=== PATIENT | male | born 1990 | race Caucasian/White ===

== ENCOUNTER 2017-03-16 12:08 | Emergency (ER) | payer SELFPAY ==
[~2017-03-16] VITALS: Ht 182.9 cm; Wt 77.1 kg
[2017-03-16 12:28] LABS: ABSOLUTE NEUTROPHILS 3.2 thou/uL (1.4-8.2); BASOPHILS 0.9 % (0.0-2.0); EOSINOPHILS 2.4 % (0.0-3.0); HEMATOCRIT 44.2 % (42.0-52.0); HEMOGLOBIN 15.5 gm/dL (14.0-18.0); LYMPHOCYTES 32.5 % (24.0-44.0); MCHC 35.1 g/dL (28.0-37.0); MCV 88.5 fL (80.0-100.0); MONOCYTES 6.9 % (1.0-8.0); PLATELET COUNT 263 thou/uL (150-400); POLYS 57.3 % (36.0-66.0); RBC 4.99 mil/uL (4.50-6.00); RDW 12.3 % (10.5-14.5); WBC 5.6 thou/uL (4.0-11.0)
[2017-03-16 12:35] LABS: CALCIUM 9.3 mg/dL (8.5-10.1); CREATININE 1.1 mg/dL (0.7-1.3); POTASSIUM 4.1 mmol/L (3.5-5.1)
[2017-03-16 12:41] LABS: ALBUMIN 4.1 g/dL (3.4-5.0); DIRECT BILIRUBIN 0.2 mg/dL (<0.1-0.3); TOTAL BILIRUBIN 0.7 mg/dL (<0.1-1.0); TOTAL PROTEIN 7.1 g/dL (6.4-8.2)
[2017-03-16 14:02] LABS: URINE BILIRUBIN NEGATIVE (Negative); URINE BLOOD 3+ (Negative); URINE COLOR YELLOW; URINE GLUCOSE-RANDOM* NEGATIVE (Negative); URINE KETONES TRACE (Negative); URINE LEUKOCYTES-REFLEX NEGATIVE (Negative); URINE NITRITE-REFLEX NEGATIVE (Negative); URINE PROTEIN (DIPSTICK) TRACE (Negative); URINE UROBILINOGEN 0.2 E.U./dl (0.2-1.0)
[2017-03-16 14:05] LABS: URINE CLARITY SL HAZY
[2017-03-16 14:10] LABS: BACTERIA-REFLEX >30 Many /HPF (None Seen); CASTS None Seen /LPF (None Seen); SQUAMOUS None Seen /LPF (0-3); URINE RBC >20 Many /HPF (0-2); URINE WBC-REFLEX None Seen /HPF (0-5)
[2017-03-16 14:11] LABS: CRYSTALS None Seen /LPF (None Seen)
[2017-03-16] MEDS ORDERED: FLOMAX0.4 MG PO (14:46)
[2017-03-16] MEDS ORDERED: ZOFRAN ODT4 MG PO (14:46)
[2017-03-16] MEDS ORDERED: NORCO 5-325 TA1 EACH PO (14:46)
[2017-03-16] MEDS ORDERED: KEFLEX500 M1 PO (14:46)
== END 2017-03-16 15:31 | disposition home or self-care (01) ==
LOC: ER 12:08
PROVIDERS: Emergency Medicine
DX: N20.1 Calculus of ureter (principal); Z77.22 Contact with and (suspected) exposure to environmental tobacco smoke (acute) (chronic)